=== PATIENT | female | born 1970 | race Two or more races ===

== ENCOUNTER 2018-12-23 15:29 | Emergency (ER) | payer SELFPAY ==
[2018-12-23 15:34] VITALS: BP 114/67; PULSE 83; TEMP 98.3; BMI 21.5
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
[2018-12-23] MEDS ORDERED: ACETAMINOPHEN 325 MG TABLET (FP) PO ONE (15:42)
[2018-12-23] MEDS ORDERED: ACETAMINOPHEN 325 MG TABLET (FP) ONE (15:45)
== END 2018-12-23 16:12 | disposition home or self-care (01) ==
LOC: JERFT 15:29
DX: S69.81XA Other specified injuries of right wrist, hand and finger(s), initial encounter (principal); M79.644 Pain in right finger(s); X58.XXXA Exposure to other specified factors, initial encounter; Y93.89 Activity, other specified; Y92.89 Other specified places as the place of occurrence of the external cause; Y99.8 Other external cause status
CPT/HCPCS: 73140-TC-RT-FY; 99281-25

== ENCOUNTER → 2020-06-03 | Day surgery (SDC) | payer OTHER | END | disposition home or self-care (01) | LOC: FMAMMOTONE 08:47 | PROVIDERS: ATTEND Physician Assistant | PROC: 0H9T3ZX Drainage of Right Breast, Percutaneous Approach, Diagnostic (ICD-10-PCS; principal; 2020-06-03) | DX: N60.31 Fibrosclerosis of right breast (principal) | CPT/HCPCS: 19081; 76098-TC-FY; 87899; 88305-TC; A4648 ==

== ENCOUNTER 2021-08-12 14:39 | Emergency (ER) | payer OTHER ==
[2021-08-12 15:10] VITALS: TEMP 98.2; BMI 21.9
[2021-08-12] MEDS ORDERED: ONDANSETRON 4 MG/2 ML VIAL IVPUSH ONE (15:26)
[2021-08-12] MEDS ORDERED: SODIUM CHLORIDE 1,000 ML IV STA (15:26)
[2021-08-12] MEDS ORDERED: ACETAMINOPHEN 1000 MG/100 ML BAG IVPB ONE (15:26)
[2021-08-12] MEDS ORDERED: FAMOTIDINE 20 MG/50 ML IVPB 20 MG/50 ML MG IVPB ONE (15:30)
[2021-08-12] MEDS ORDERED: ONDANSETRON 4 MG/2 ML VIAL ONE (15:32)
[2021-08-12] MEDS ORDERED: ACETAMINOPHEN INJECTION 100 ML IVPB ONE (15:32)
[2021-08-12 16:37] LABS: BASO % 0.5 % (0-2.0); EOS % 1.5 % (0-4.5); HEMATOCRIT 38.9 % (32.4-45.2); LYMPH % 15.5 % (8-40); MCH 32.2 pg (25.7-33.7); MCHC 33.5 g/dl (32.0-36.0); MEAN CELL VOLUME 96.1 fl (80-96); MEAN PLT VOLUME 8.7 fl (7.5-11.1); MONO % 8.2 % (3.8-10.2); NEUT % 74.3 % (42.8-82.8); PLATELET COUNT 232 10^3/uL (134-434); RBC 4.05 M/mm3 (3.60-5.2); RDW 14.5 % (11.6-15.6); WHITE BLOOD COUNT 8.5 K/mm3 (4.0-10.0)
[2021-08-12 17:17] LABS: BLOOD UREA NITROGEN 10.9 mg/dL (7-18); CALCIUM 9.2 mg/dL (8.5-10.1)
[2021-08-12 17:21] LABS: CREATININE 0.8 mg/dL (0.55-1.3)
[2021-08-12 17:22] LABS: BILIRUBIN,TOTAL 0.3 mg/dL (0.2-1); TOT PROT 7.8 g/dl (6.4-8.2)
[2021-08-12 17:48] LABS: URINE APPEARANCE CLEAR; URINE BILIRUBIN NEGATIVE (NEGATIVE); URINE COLOR YELLOW; URINE GLUCOSE (UA) NEGATIVE (NEGATIVE); URINE KETONE NEGATIVE (NEGATIVE); URINE LEUK ESTERASE NEGATIVE (NEGATIVE); URINE NITRITE NEGATIVE (NEGATIVE); URINE PROTEIN NEGATIVE (NEGATIVE); URINE UROBILINOGEN 0.2 mg/dL (0.2-1.0)
[2021-08-12 17:49] LABS: HCG,QUALITATIVE URINE Negative
[2021-08-12 19:06] VITALS: BP 138/88; PULSE 86
== END 2021-08-12 19:13 ==
LOC: JER 14:39
PROC: 3E033GC Introduction of Other Therapeutic Substance into Peripheral Vein, Percutaneous Approach (ICD-10-PCS; principal; 2021-08-12)
DX: K21.9 Gastro-esophageal reflux disease without esophagitis (principal); R11.0 Nausea
CPT/HCPCS: 36415; 76705-TC; 80053; 81003; 83690; 84703; 85025; 87086; 99284-25

== ENCOUNTER 2023-02-07 09:18 | Emergency (ER) | payer OTHER ==
[2023-02-07 09:29] VITALS: BMI 26.5
[2023-02-07] MEDS ORDERED: ACETAMINOPHEN 1000 MG/100 ML BAG IVPB ONE (09:58)
[2023-02-07] MEDS ORDERED: SODIUM CHLORIDE 1,000 ML IV STA (09:58)
[2023-02-07] MEDS ORDERED: ACETAMINOPHEN INJECTION 100 ML IVPB ONE (10:01)
[2023-02-07 10:16] LABS: HCG,QUALITATIVE URINE Negative
[2023-02-07 10:18] LABS: EPI CELLS 17 /uL (0-25.1); HYALINE CASTS 0 /uL (0-3.1); PH,URINE 7.5 (5.0-8.0); URINE APPEARANCE CLEAR; URINE BACTERIA >9,000 /uL (0-1359); URINE BILIRUBIN NEGATIVE (NEGATIVE); URINE COLOR YELLOW; URINE GLUCOSE (UA) NEGATIVE (NEGATIVE); URINE KETONE NEGATIVE (NEGATIVE); URINE LEUK ESTERASE 2+ (NEGATIVE); URINE NITRITE NEGATIVE (NEGATIVE); URINE PROTEIN NEGATIVE (NEGATIVE); URINE UROBILINOGEN 0.2 mg/dL (0.2-1.0); URINE WBC 93 /uL (0-25.8)
[2023-02-07] MEDS ORDERED: CEFTRIAXONE 1,000 MG in DEXTROSE 5%-WATER - 50 ML IVPB ONE (10:20)
[2023-02-07 10:57] LABS: POTASSIUM 4.1 mmol/L (3.5-5.1)
[2023-02-07 10:58] LABS: BASO % 0.5 % (0-2.0); EOS % 2.1 % (0-4.5); HEMATOCRIT 40.2 % (32.4-45.2); MCH 30.5 pg (25.7-33.7); MCHC 32.3 g/dl (32.0-36.0); MEAN CELL VOLUME 94.5 fl (80-96); MEAN PLT VOLUME 9.2 fl (7.5-11.1); MONO % 6.7 % (3.8-10.2); NEUT % 70.7 % (42.8-82.8); PLATELET COUNT 259 10^3/uL (134-434); RBC 4.26 M/mm3 (3.60-5.2); RDW 14.2 % (11.6-15.6); WHITE BLOOD COUNT 8.1 K/mm3 (4.0-10.0)
[2023-02-07 10:59] LABS: CALCIUM 9.3 mg/dL (8.5-10.1)
[2023-02-07 11:00] LABS: ALBUMIN 3.7 g/dl (3.4-5.0); BLOOD UREA NITROGEN 10.6 mg/dL (7-18)
[2023-02-07 11:03] LABS: CREATININE 0.7 mg/dL (0.55-1.3)
[2023-02-07 11:04] LABS: BILIRUBIN,TOTAL 0.6 mg/dL (0.2-1); TOT PROT 7.4 g/dl (6.4-8.2)
[2023-02-07] MEDS ORDERED: CEFTRIAXONE 1 GM/50 ML BAG ONE (11:04)
[2023-02-07 11:58] VITALS: BP 127/66; PULSE 60; RESP 20; TEMP 98.4
== END 2023-02-07 11:59 | disposition home or self-care (01) ==
LOC: JER 09:18
PROC: 3E033GC Introduction of Other Therapeutic Substance into Peripheral Vein, Percutaneous Approach (ICD-10-PCS; principal; 2023-02-07)
PROC: 3E033GC Introduction of Other Therapeutic Substance into Peripheral Vein, Percutaneous Approach (ICD-10-PCS; 2023-02-07)
PROC: 3E0337Z Introduction of Electrolytic and Water Balance Substance into Peripheral Vein, Percutaneous Approach (ICD-10-PCS; 2023-02-07)
DX: R10.31 Right lower quadrant pain (principal); N12 Tubulo-interstitial nephritis, not specified as acute or chronic
CPT/HCPCS: 36415; 80053; 81003; 83690; 84703; 85025; 87086; 87186; 99284-25